=== PATIENT | male | born 1955 | race Caucasian/White ===

== ENCOUNTER 2018-09-09 08:56 | Emergency (ER) | payer OTHER ==
[~2018-09-09] VITALS: Ht 182.9 cm; Wt 95.3 kg
[~2018-09-09 08:56] MED LIST: ALPR.5T PO; AMLO10TA82 PO; ASP325TEC PO; BACL20TA PO; DICL75TA2 PO; GABA800T PO; LSRT50T PO; MISO200T4 PO; OMEP20CA12 PO; TMZP15C PO
[2018-09-09] MEDS ORDERED: NS IV 1000 ML 1,000 ML ONE (09:07)
[2018-09-09] MEDS ORDERED: ASPIRIN 81 MG CHEW (CHILDREN'S ASA) PO ONE (09:15)
[2018-09-09] MEDS ORDERED: NS IV 1000 ML 1,000 ML IV ONE (09:15)
[2018-09-09 09:18] LABS: BASOPHILS % (AUTO) 1 % (0-10); EOSINOPHILS # (AUTO) 0.3 10^3/uL (0.0-0.3); EOSINOPHILS % (AUTO) 5 % (0-10); HEMATOCRIT 46 % (40-54); HEMOGLOBIN 15.2 G/DL (13.3-17.7); LYMPHOCYTES # (AUTO) 1.9 X 10^3 (1.0-4.0); LYMPHOCYTES % (AUTO) 33 % (12-44); MEAN CORPUSCULAR HEMOGLOBIN 32 PG (25-34); MEAN CORPUSCULAR HGB CONC 33 G/DL (32-36); MEAN CORPUSCULAR VOLUME 95 FL (80-99); MEAN PLATELET VOLUME 9.8 FL (7.4-10.4); MONOCYTES # (AUTO) 0.3 X 10^3 (0.0-1.0); MONOCYTES % (AUTO) 6 % (0-12); NEUTROPHILS # (AUTO) 3.3 X 10^3 (1.8-7.8); NEUTROPHILS % (AUTO) 56 % (42-75); PLATELET COUNT 223 10^3/uL (130-400); RED CELL DISTRIBUTION WIDTH 12.8 % (10.0-14.5); WHITE BLOOD COUNT 5.8 10^3/uL (4.3-11.0)
--- OUTSIDE RECORDS SUMMARY | 2018-09-09 09:21 | XMS REPORT | Continuity of Care Document ---
Author Organization Unknown Address Unknown Allergies Active Description Code Type Severity Reaction Onset Reported/Identified Relationship to Patient Clinical Status Yes Penicillins [id number] Drug Allergy Unknown N/A 12/18/2008 Yes Sulfa (Sulfonamide Antibiotics) [id number] Drug Allergy Unknown N/A 12/18/2008 Medications There is no data. Problems Date Dx Coded Attending Type Code Diagnosis Diagnosed By 01/29/1209 LEXIS ACUNA DO Ot R13.13 DYSPHAGIA, PHARYNGEAL PHASE 01/29/1209 LEXIS ACUNA DO Ot Z98.1 ARTHRODESIS STATUS 07/03/2014 FERNANDO GALINDO DOQUELINE S Ot 562.10 07/03/2014 SIRISHANDCHRISSY DO LEATHA S Ot 721.3 07/03/2014 SIRISHANDER DO, LEATHA S Ot 733.42 07/06/2014 SIRISHANDER DO, LEATHA S Ot 562.10 07/06/2014 SIRISHANDER DO, LEATHA S Ot 721.3 07/06/2014 ORENDER DO, LEATHA S Ot 733.42 07/21/2014 SIRISHANDER DO, LEATHA S Ot 562.10 07/21/2014 SIRISHANDER DO, LEATHA S Ot 721.3 07/21/2014 SIRISHANDER DO, LEATHA S Ot 733.42 05/04/2015 WHIT BORJAS LAMP WIRER Ot R06.00 05/04/2015 WHIT BORJAS LAMP WIRER Ot R07.89 06/06/2015 WHIT BORJAS LAMP WIRER Ot R06.00 06/06/2015 WHIT BORJAS LAMP WIRER Ot R07.89 06/06/2015 WHIT BORJAS LAMP WIRER Ot R53.83 06/06/2015 WHIT BORJAS LAMP WIRER Ot R06.00 06/06/2015 WHIT BORJAS LAMP WIRER Ot R07.89 06/06/2015 WHIT BORJAS APRN Ot R06.00 06/06/2015 WHIT BORJAS APRN Ot R07.89 06/06/2015 WHIT BORJAS APRN Ot R53.83 06/06/2015 LEATHA GALINDO DO Ot R06.00 06/06/2015 LEATHA GALINDO DO S Ot R07.89 06/06/2015 LEATHA GALINDO DO S Ot R53.83 06/07/2015 LEXIS ACUNA DO Ot R13.13 DYSPHAGIA, PHARYNGEAL PHASE 06/07/2015 LEXIS ACUNA DO Ot Z98.1 ARTHRODESIS STATUS 06/08/2015 LEXIS ACUNA DO Ot R13.13 06/08/2015 LEXIS ACUNA DO Ot Z98.1 Procedures There is no data. Results Test Result Range Complete blood count (CBC) with automated white blood cell (WBC) differential - 09/09/18 09:00 Blood leukocytes automated count (number/volume) 5.8 10*3/uL 4.3-11.0 Blood erythrocytes automated count (number/volume) 4.83 10*6/uL 4.35-5.85 Venous blood hemoglobin measurement (mass/volume) 15.2 g/dL 13.3-17.7 Blood hematocrit (volume fraction) 46 % 40-54 Automated erythrocyte mean corpuscular volume 95 [foz_us] 80-99 Automated erythrocyte mean corpuscular hemoglobin (mass per erythrocyte) 32 pg 25-34 Automated erythrocyte mean corpuscular hemoglobin concentration measurement (mass/volume) 33 g/dL 32-36 Automated erythrocyte distribution width ratio 12.8 % 10.0- 14.5 Automated blood platelet count (count/volume) 223 10*3/uL 130-400 Automated blood platelet mean volume measurement 9.8 [foz_us] 7.4-10.4 Automated blood neutrophils/100 leukocytes 56 % 42-75 Automated blood lymphocytes/100 leukocytes 33 % 12-44 Blood monocytes/100 leukocytes 6 % 0-12 Automated blood eosinophils/100 leukocytes 5 % 0-10 Automated blood basophils/100 leukocytes 1 % 0-10 Blood neutrophils automated count (number/volume) 3.3 10*3 1.8-7.8 Blood lymphocytes automated count (number/volume) 1.9 10*3 1.0-4.0 Blood monocytes automated count (number/volume) 0.3 10*3 0.0- 1.0 Automated eosinophil count 0.3 10*3/uL 0.0-0.3 Automated blood basophil count (count/volume) 0.0 10*3/uL 0.0-0.1 Encounters ACCT No. Visit Date/Time Discharge Status Pt. Type Provider Facility Loc./Unit Complaint 11/06/18 08/09/2018 14:44:39 08/09/2018 23:59:59 CLS Outpatient Leatha Galindo. [id number] 05/18/2015 11:24:00 06/07/2015 12:10:00 DIS Outpatient ARMAND LEXIS FOWLER [facility] REHAB [id number] 05/10/2015 14:44:00 05/10/2015 23:59:59 CLS Outpatient LEATHA GALINDO DO S [facility] CARD [id number] 05/04/2015 13:11:00 05/04/2015 23:59:59 CLS Outpatient WHIT BORJAS LAMP WIRER [facility] LAB [id number] 05/03/2015 13:30:00 05/03/2015 23:59:59 CLS Outpatient WHIT BORJAS LAMP WIRER [facility] RAD [id number] 05/02/2015 10:31:00 05/02/2015 23:59:59 CLS Outpatient WHIT BORJAS LAMP WIRER [facility] LAB [id number] 06/30/2014 09:42:00 06/30/2014 23:59:59 CLS Outpatient LEATHA GALINDO DO S [facility] RAD [id number] 08/10/2013 11:40:00 08/10/2013 23:59:59 CLS Outpatient [id number] 09/09/2018 09:19:00 Document Registration
[2018-09-09 09:29] LABS: INR 0.9 (0.8-1.4); PROTHROMBIN TIME PATIENT 12.8 SEC (12.2-14.7)
[2018-09-09 09:36] LABS: ALANINE AMINOTRANSFERASE 31 U/L (0-55); ALBUMIN 4.7 GM/DL (3.2-4.5); ALKALINE PHOSPHATASE 86 U/L (40-136); BILIRUBIN,TOTAL 0.5 MG/DL (0.1-1.0); BUN/CREATININE RATIO 17; CALCIUM 9.6 MG/DL (8.5-10.1); CARBON DIOXIDE 22 MMOL/L (21-32); CHLORIDE 104 MMOL/L (98-107); CREATININE SERUM 1.15 MG/DL (0.60-1.30); GFR ESTIMATED > 60; GLUCOSE 191 MG/DL (70-105); LIPASE 16 U/L (8-78); MAGNESIUM 2.1 MG/DL (1.8-2.4); SODIUM 137 MMOL/L (135-145); TOTAL PROTEIN 7.6 GM/DL (6.4-8.2)
--- NOTE | 2018-09-09 10:12 | Diagnostic Imaging Report ---
INDICATION: Fatigue, sleepiness, exhaustion, malaise, and chills. FINDINGS: There is no focal consolidation or overt failure. No effusion or pneumothorax. Given differing technique, there has been no change from the prior exam. IMPRESSION: No acute appearing abnormality. Dictated by: Dictated on workstation # [id number]
--- NOTE | 2018-09-09 10:21 | ED General ---
General Chief Complaint: General Problems/Pain Stated Complaint: WEAKNESS;SOA;NAUSEA Nursing Triage Note: PT PRESENTS TO ED WITH COMPLAINTS OF FATIGUE, EXCESSIVE SLEEPINESS, EXHAUSTION, MALAISE AND CHILLS SINCE THURSDAY EVENING. Nursing Sepsis Screen: No Definite Risk Source of Information: Patient Exam Limitations: No Limitations History of Present Illness Date Seen by Provider: Sep 09, 2018 Time Seen by Provider: 09:00 Initial Comments Here with report of being short of breath, fatigue, feeling weak and having chills. All of this is been going on for the last 4 days and has not really gotten better. He did work in the yard on Thursday just prior to the onset of ev ents. He states he did not work very hard. He states he just feels exhausted. Denies fever or chest pain. Denies nausea or vomiting. She has been a little to drink and eat a little although has had decreased appetite. Did note a tick on him about a month ago that was just crawling on him. Timing/Duration: 4-5 Days, Getting Worse Severity: Moderate Associated Systoms: No Chest Pain, No Diaphoresis; Malaise; No Nausea/Vomiting; Shortness of Air, Weakness Allergies and Home Medications Allergies Coded Allergies: Penicillins (Verified Allergy, Unknown, 12/18/08) Sulfa (Sulfonamide Antibiotics) (Verified Allergy, Unknown, 12/18/08) Home Medications Alprazolam 0.5 Mg Tablet, 0.5 MG PO BID PRN, (Reported) Amlodipine Besylate 10 Mg Tablet, 10 MG PO DAILY, (Reported) Aspirin 325 Mg Tabec, 325 MG PO DAILY, (Reported) Baclofen 20 Mg Tablet, 20 MG PO BID PRN, (Reported) Diclofenac Sodium 75 Mg Tablet.dr, 75 MG PO DAILY, (Reported) GIVE WITH MISOPROSPOL Gabapentin 800 Mg Tablet, 800 MG PO HS PRN, (Reported) Losartan Potassium 50 Mg Tablet, 50 MG PO DAILY, (Reported) Misoprostol 200 Mcg Tablet, 200 MCG PO DAILY, (Reported) GIVE WITH DICLOFENAC Omeprazole 20 Mg Capsule.dr, 20 MG PO DAILY, (Reported) Temazepam 15 Mg Cap, 15-30 MG PO HS PRN, (Reported) Patient Home Medication List Home Medication List Reviewed: Yes Review of Systems Review of Systems Constitutional: see HPI; No chills, No fever EENTM: no symptoms reported Respiratory: see HPI, short of breath; No wheezing Cardiovascular: No chest pain, No edema Gastrointestinal: No abdominal pain, No nausea, No vomiting Genitourinary: no symptoms reported Musculoskeletal: no symptoms reported Skin: no symptoms reported Psychiatric/Neurological: Denies Headache; Weakness All Other Systems Reviewed Negative Unless Noted: Yes Past Aoqosku-Tatxwn-Bxropg Hx Past Med/Social Hx: Reviewed Nursing Past Med/Soc Hx Patient Social History Alcohol Use: Denies Use Recreational Drug Use: No Smoking Status: Former Smoker Type Used: Cigarettes Former Smoker, Quit: Feb 04, 2018 Recent Foreign Travel: No Contact w/Someone Who Travel: No Recent Infectious Disease Expo: No Past Medical History Surgeries: Yes (neck, back) Orthopedic Respiratory: No Cardiac: Yes Hypertension Neurological: No Reproductive Disorders: No Genitourinary: No Gastrointestinal: No Musculoskeletal: Yes Arthritis, Chronic Back Pain Endocrine: No Psychosocial: Yes Sleep Difficulties Blood Disorders: No Family Medical History Reviewed Nursing Family Hx No Pertinent Family Hx Physical Exam Vital Signs Vital Signs - First Documented 09/09/18 09:19 Temp 97.4 Pulse 103 Resp 14 B/P (MAP) 148/85 (106) Pulse Ox 98 Capillary Refill : Less Than 3 Seconds Height, Weight, BMI Height: 6'" Weight: 210lbs. oz. 95.951875ix; BMI Method:Stated General Appearance: WD/WN, Anxious HEENT: PERRL/EOMI, Pharynx Normal Neck: Non Tender, Supple Respiratory: Lungs Clear, Normal Breath Sounds Cardiovascular: No Murmur, Tachycardia Gastrointestinal: Non Tender, Soft Back: Normal Inspection, No CVA Tenderness, No Vertebral Tenderness Extremity: Normal Range of Motion, Non Tender Neurologic/Psychiatric: Alert, Oriented x3 Skin: Normal Color, Warm/Dry Progress/Results/Core Measures Suspected Sepsis Recent Fever Within 48 Hours: No Infection Criteria Present: None New/Unexplained Altered Menta: No Sepsis Screen: No Definite Risk SIRS Temperature:97.4 Pulse: 103 Respiratory Rate: 14 Laboratory Tests 09/09/18 09:00: White Blood Count 5.8 Blood Pressure 148 /85 Mean: 106 Laboratory Tests 09/09/18 09:00: Creatinine 1.15, INR Comment 0.9, Platelet Count 223, Total Bilirubin 0.5 Results/Orders Lab Results Laboratory Tests Test 09/09/18 09:00 09/09/18 10:17 09/09/18 10:20 Range/Units White Blood Count 5.8 4.3-11.0 10^3/uL Red Blood Count 4.83 4.35-5.85 10^6/uL Hemoglobin 15.2 13.3-17.7 G/DL Hematocrit 46 40-54 % Mean Corpuscular Volume 95 80-99 FL Mean Corpuscular Hemoglobin 32 25-34 PG Mean Corpuscular Hemoglobin Concent 33 32-36 G/DL Red Cell Distribution Width 12.8 10.0-14.5 % Platelet Count 223 130-400 10^3/uL Mean Platelet Volume 9.8 7.4-10.4 FL Neutrophils (%) (Auto) 56 42-75 % Lymphocytes (%) (Auto) 33 12-44 % Monocytes (%) (Auto) 6 0-12 % Eosinophils (%) (Auto) 5 0-10 % Basophils (%) (Auto) 1 0-10 % Neutrophils # (Auto) 3.3 1.8-7.8 X 10^3 Lymphocytes # (Auto) 1.9 1.0-4.0 X 10^3 Monocytes # (Auto) 0.3 0.0-1.0 X 10^3 Eosinophils # (Auto) 0.3 0.0-0.3 10^3/uL Basophils # (Auto) 0.0 0.0-0.1 10^3/uL Prothrombin Time 12.8 12.2-14.7 SEC INR Comment 0.9 0.8-1.4 Activated Partial Thromboplast Time 32 24-35 SEC D-Dimer 0.52 H 0.00-0.49 UG/ML Sodium Level 137 135-145 MMOL/L Potassium Level 4.0 3.6-5.0 MMOL/L Chloride Level 104 98-107 MMOL/L Carbon Dioxide Level 22 21-32 MMOL/L Anion Gap 11 5-14 MMOL/L Blood Urea Nitrogen 19 H 7-18 MG/DL Creatinine 1.15 0.60-1.30 MG/DL Estimat Glomerular Filtration Rate > 60 BUN/Creatinine Ratio 17 Glucose Level 191 H 70-105 MG/DL Calcium Level 9.6 8.5-10.1 MG/DL Corrected Calcium 8.5-10.1 MG/DL Magnesium Level 2.1 1.8-2.4 MG/DL Total Bilirubin 0.5 0.1-1.0 MG/DL Aspartate Amino Transf (AST/SGOT) 21 5-34 U/L Alanine Aminotransferase (ALT/SGPT) 31 0-55 U/L Alkaline Phosphatase 86 40-136 U/L Myoglobin 37.8 10.0-92.0 NG/ML Troponin I < 0.028 <0.028 NG/ML Total Protein 7.6 6.4-8.2 GM/DL Albumin 4.7 H 3.2-4.5 GM/DL Lipase 16 8-78 U/L Urine Color YELLOW Urine Clarity CLEAR Urine pH 5 5-9 Urine Specific [place] 1.010 L 1.016-1.022 Urine Protein NEGATIVE NEGATIVE Urine Glucose (UA) NEGATIVE NEGATIVE Urine Ketones NEGATIVE NEGATIVE Urine Nitrite NEGATIVE NEGATIVE Urine Bilirubin NEGATIVE NEGATIVE Urine Urobilinogen NORMAL NORMAL MG/DL Urine Leukocyte Esterase NEGATIVE NEGATIVE Urine RBC (Auto) NEGATIVE NEGATIVE Urine RBC NONE /HPF Urine WBC NONE /HPF Urine Squamous Epithelial Cells RARE /HPF Urine Crystals NONE /LPF Urine Bacteria NEGATIVE /HPF Urine Casts NONE /LPF Urine Mucus NEGATIVE /LPF Urine Culture Indicated NO My Orders Orders - CHARLY MAGAÑA MD Cbc With Automated Diff (09/09/18 09:04) Magnesium (09/09/18 09:04) Chest 1 View, Ap/Pa Only (09/09/18 09:04) Ekg Tracing (09/09/18 09:04) Cardiac Profile 1 (09/09/18 09:04) Comprehensive Metabolic Panel (09/09/18 09:04) Myoglobin Serum (09/09/18 09:04) Protime With Inr (09/09/18:04) Partial Thromboplastin Time (09/09/18 09:04) O2 (09/09/18 09:04) Monitor-Rhythm Ecg Trace Only (09/09/18 09:04) Lipid Panel (09/10/18 06:00) Ed Iv/Invasive Line Start (09/09/18 09:04) Lipase (09/09/18 09:04) Fibrin Degradation Products (09/09/18 09:04) Aspirin Chewable Tablet (Baby Aspirin Ch (09/09/18 09:15) Ns Iv 1000 Ml (Sodium Chloride 0.9%) (09/09/18 09:07) Ed Iv/Invasive Line Start (09/09/18 09:15) Ns Iv 1000 Ml (Sodium Chloride 0.9%) (09/09/18 09:15) Tick Panel With Lyme Eia (09/09/18 09:56) Ua Culture If Indicated (09/09/18 09:57) Medications Given in ED Current Medications Medications Dose Ordered Sig/Yariel Route Start Time Stop Time Status Last Admin Dose Admin Aspirin 324 mg ONCE ONCE PO 09/09/18 09:15 09/09/18 09:16 DC 09/09/18 09:15 324 MG Sodium Chloride 1,000 ml @ 0 mls/hr Q0M ONCE IV 09/09/18 09:15 09/09/18 09:17 DC 09/09/18 09:15 0 MLS/HR Vital Signs/I&O 09/09/18 09:19 Temp 97.4 Pulse 103 Resp 14 B/P (MAP) 148/85 (106) Pulse Ox 98 Capillary Refill : Less Than 3 Seconds Blood Pressure Mean: 106 Progress Note : Progress Note Seen and evaluated. IV, labs, EKG, chest x-ray and UA ordered. Normal saline 1 L bolus ordered. Monitor patient. We will add tick panel given history of tick as this may cause his symptoms of fatigue etc. 1130: I reviewed his EKG, chest x-ray and all labs. No significant findings. Blood sugar is a little elevated although he is recently had normal labs per him. We will go ahead and initiate treatment for possible tickborne disease. This was discussed with the patient. Discharged home with return precautions. Patient verbalize understanding instructions and agreement with plan. ECG Initial ECG Impression Date: Sep 09, 2018 Initial ECG Impression Time: 09:08 Initial ECG Rate: 89 Initial ECG Rhythm: Normal Sinus Comment Sinus rhythm with normal axis. No evidence of ST elevation CO. No change from previous of May 15. Interpreted by me. Diagnostic Imaging Diagonstic Imaging: Xray Plain Films/CT/US/NM/MRI: chest Comments [facility], [place] NAME: JUDE AKINS [facility] REC#: [id number] PT STATUS: REG ER : 1955 PHYSICIAN: CHARLY MAGAÑA MD ADMIT DATE: 09/09/18/ER Draft Date of Exam:09/09/18 CHEST 1 VIEW, AP/PA ONLY INDICATION: Fatigue, sleepiness, exhaustion, malaise, and chills. FINDINGS: There is no focal consolidation or overt failure. No effusion or pneumothorax. Given differing technique, there has been no change from the prior exam. IMPRESSION: No acute appearing abnormality. Dictated on workstation # [id number] Dict: 09/09/18 0959 Trans: 09/09/18 [id number] Interpreted by: CAITLIN NOLAN Electronically signed by: Departure Impression Primary Impression: Fatigue Qualified Codes: R53.82 - Chronic fatigue, unspecified Disposition: HOME, SELF-CARE Condition: Stable Departure-Patient Inst. Decision time for Depature: 11:38 Referrals: LEXIS ACUNA DO (PCP) Primary Care Physician Patient Instructions: Fatigue (DC) Add. Discharge Instructions: All discharge instructions reviewed with patient and/or family. Voiced unde rstanding. Follow up with your Dr. in a few days for recheck. Due to your exposure to a tick, we will go ahead and treat for tick born disease. Drink plenty of fluids and try to eat a normal diet. Continue other medications as previously prescribed. Return for worse pain, fever, vomiting, weakness, breathing problems or other concerns as needed. Scripts Doxycycline Hyclate (Doxycycline Hyclate) 100 Mg Tablet 100 MG PO BID, #20 TAB 0 Refills Prov: CHARLY MAGAÑA MD 09/09/18 CHARLY MAGAÑA MD Sep 09, 2018 10:21
[2018-09-09 10:27] LABS: BILIRUBIN,URINE NEGATIVE (NEGATIVE); CLARITY,URINE CLEAR; COLOR,URINE YELLOW; GLUCOSE, URINE (UA) NEGATIVE (NEGATIVE); KETONES,URINE NEGATIVE (NEGATIVE); LEUKOCYTE ESTERASE ,URINE NEGATIVE (NEGATIVE); NITRITE,URINE NEGATIVE (NEGATIVE); PH,URINE 5 (5-9); PROTEIN,URINE NEGATIVE (NEGATIVE); UROBILINOGEN,URINE NORMAL (NORMAL)
[2018-09-09 10:34] LABS: BACTERIA,URINE NEGATIVE /HPF; SQUAMOUS EPITHELIAL CELL,UR RARE /HPF
[2018-09-09] MEDS ORDERED: DOXY100T2 PO (11:41)
[2018-09-09 11:47] VITALS: BP 121/80
== END 2018-09-09 11:47 | disposition home or self-care (01) ==
LOC: EDUNIT# 08:56 → ER 08:57
DX: R53.82 Chronic fatigue, unspecified (principal); I10 Essential (primary) hypertension; Z88.0 Allergy status to penicillin; Z88.2 Allergy status to sulfonamides; Z79.82 Long term (current) use of aspirin; Z87.891 Personal history of nicotine dependence
CPT/HCPCS: 36415; 71045; 80053; 81000; 83690; 83735; 83874; 84484; 85025; 85379; 85610; 85730; 86618; 86666; 86668; 86757; 93005; 93041; 96360

== ENCOUNTER → 2019-04-27 | Outpatient (CLI) | payer OTHER ==
[~2019-04-27] MED LIST changes: +DOXY100T2 PO
--- NOTE | 2019-04-27 09:58 | Diagnostic Imaging Report ---
PROCEDURE: CT urinary tract, rule out kidney stone. TECHNIQUE: Multiple contiguous axial images were obtained through the abdomen and pelvis without the use of intravenous contrast. Auto Exposure Controls were utilized during the CT exam to meet ALARA standards for radiation dose reduction. INDICATION: Flank pain. COMPARISON: 06/30/2014 FINDINGS: Included portions of the lung bases show subpleural 6 mm micronodule in the anterior margins of the right middle lobe (image 7, series 2). This is stable compared to 05/03/2015. Note is also made of moderate calcified coronary atherosclerosis. CT ABDOMEN: There is colonic diverticulosis, but no CT evidence of acute diverticulitis. Normal appendix is identified. Small bowel loops are nondistended. Evaluation of the kidneys demonstrates multiple exophytic hypodense cysts on the left. No renal or ureteral calculi are seen on either side. Additionally, there is no hydroureteronephrosis or other evidence of obstruction. The spleen, adrenal glands, pancreas, and liver have an unremarkable noncontrast CT appearance. There is no loculated fluid collection, free fluid, nor free air within the abdomen. No abnormal mesenteric or retroperitoneal adenopathy is seen. Note is made of moderate diffuse calcified aortic and arterial atherosclerosis. Osseous structures show no acute abnormalities. CT pelvis: Urinary bladder is unopacified. No calculi are seen within the urinary bladder. There is no loculated fluid collection, free fluid, nor free air within the pelvis. No abnormal lymph nodes are identified. Osseous structures show no acute abnormalities. IMPRESSION: 1. Hypodense left renal cyst. Otherwise, unremarkable noncontrast CT of the kidneys and bilateral renal collecting systems. 2. Colonic diverticulosis, but no CT evidence of acute diverticulitis. 3. Small micronodule of the right middle lobe. Stability since 05/03/2015 suggests benignity. 4. Moderate diffuse calcified aorta, coronary, and arterial atherosclerosis. Dictated by: Dictated on workstation # [id number]
== END ==
LOC: RAD 08:35
PROVIDERS: ATTEND Family Medicine
DX: N20.0 Calculus of kidney (principal); K57.30 Diverticulosis of large intestine without perforation or abscess without bleeding; I25.10 Atherosclerotic heart disease of native coronary artery without angina pectoris; I70.0 Atherosclerosis of aorta
CPT/HCPCS: 74176